=== PATIENT | female | born 1955 | race Caucasian/White ===

== ENCOUNTER 2023-03-13 06:32 | Day surgery (SDC) | payer OTHER, MEDICARE ==
[2023-03-10 12:39] VITALS: BMI 23.8
[2023-03-13 07:11] VITALS: PULSE 93; RESP 16
[2023-03-13] MEDS ORDERED: PROPOFOL 100 ML ONE (07:30)
[2023-03-13] MEDS ORDERED: GLYCOPYRROLATE 0.2 MG/1 ML VIAL ONE (07:31)
[2023-03-13] MEDS ORDERED: LIDOCAINE HCL/PF 2% SDV 5ML VIAL ONE (07:32)
[2023-03-13 08:32] VITALS: BP 121/70; TEMP 96.6
== END 2023-03-13 09:00 | disposition home or self-care (01) ==
LOC: FASU-ENDO 06:32
PROVIDERS: ATTEND Internal Medicine Gastroenterology
PROC: 0DBN8ZX Excision of Sigmoid Colon, Via Natural or Artificial Opening Endoscopic, Diagnostic (ICD-10-PCS; principal; 2023-03-13 08:02)
DX: K92.1 Melena (principal); K64.2 Third degree hemorrhoids; K64.3 Fourth degree hemorrhoids
CPT/HCPCS: 88305-TC